=== PATIENT | female | born 1965 | race Caucasian/White ===

== ENCOUNTER 2020-09-03 08:54 | Outpatient (REF) | payer OTHER, SELFPAY ==
[2020-09-03 09:18] LABS: COVID-19 Test Negative (Negative)
== END 2020-09-03 08:55 | disposition home or self-care (01) ==
LOC: HO.LAB 08:54
PROVIDERS: PCP Family Medicine; Visit Provider Internal Medicine
DX: Z20.828 Contact with and (suspected) exposure to other viral communicable diseases (principal)
CPT/HCPCS: 87635

== ENCOUNTER 2020-10-31 10:03 | Outpatient (REF) | payer OTHER, SELFPAY ==
[2020-10-31 10:31] LABS: COVID-19 Test Negative (Negative)
== END 2020-10-31 10:04 | disposition home or self-care (01) ==
LOC: HO.EMPCOV 10:03
PROVIDERS: PCP Family Medicine; Visit Provider Internal Medicine
DX: Z20.828 Contact with and (suspected) exposure to other viral communicable diseases (principal)
CPT/HCPCS: 87635; C9803

== ENCOUNTER → 2021-01-08 14:42 | Outpatient (BNVA) | payer OTHER, SELFPAY | PROVIDERS: Visit Provider Internal Medicine | DX: I31.3 Pericardial effusion (noninflammatory) (principal) | CPT/HCPCS: 93005 ==

== ENCOUNTER → 2021-02-14 07:38 | Outpatient (REF) | payer OTHER, SELFPAY ==
--- NOTE | 2021-02-14 07:40 | CA_ITS ---
Transthoracic Echocardiogram Amended Patient (Last, First, Middle): Sissy Rubalcava Moyer Gender: Female Date of : 1965 Age: 55 Procedure Date: 02/14/2021 Procedure Type: Transthoracic Echocardiogram Location: OP Height: 160.02 cm Weight: 56.7 kg BSA: 1.58 m2 Heart Rate: bpm BP: 120 / 50 mmHg Toll Ticket Clerk: MAXIMILIANO Referring MD: John Bach MD Symptoms: I31.3 - Pericardial effusion (noninflammatory) Study Quality: Good ECG Rhythm: Sinus Conclusions: - The left ventricular systolic function is normal. The visually estimated ejection fraction is between 60-65%. - Moderate to large pericardial effusion most prominent over the right ventricle and partly right atrium, towards the posterior aspect. Maximum thickness almost 3.2 cm. Effusion is much smaller elsewhere. - There are no definitive echocardiographic findings of tamponade physiology. Findings Left Ventricle Normal left ventricular cavity size. There is normal left ventricular wall thickness. The left ventricular systolic function is normal. The visually estimated ejection fraction is between 60-65%. There is no evidence of regional wall motion abnormalities. Diastolic function is normal for age. Right Ventricle Normal right ventricular cavity size and systolic function. Atria Both atria are normal in size. Aortic Valve There is a normal trileaflet aortic valve. There is no aortic valve stenosis. There is no aortic valve regurgitation. Mitral Valve The mitral valve appears normal. There is trace mitral valve regurgitation. There is no mitral valve stenosis. Pulmonic Valve The pulmonic valve was not well visualized. Tricuspid Valve Normal tricuspid valve structure. There is trace tricuspid valve regurgitation. The pulmonary artery systolic pressure is normal. Great Vessels The aortic annulus, sinuses of valsalva, and asc aorta are normal in size. Venous The inferior vena cava is normal in size and collapses greater than 50% with inspiration. Pericardium/Pleural There are no definitive echocardiographic findings of tamponade physiology. Moderate to large pericardial effusion most prominent over the right ventricle and partly right atrium, towards the posterior aspect. Maximum thickness almost 3.2 cm. Effusion is much smaller elsewhere. Prior Study Comparison No significant change compared to prior study dated: 01/05/2019. Measurements 2D Linear Measurements IVSd: 0.74 0.6-0.9/0.6-1.0 cm LVIDd: 4.19 3.9-5.3/4.2-5.9 cm LVIDd Index: 2.65 2.4-3.2/2.2-3.1 cm/m2 LVIDs: 2.73 2.0-3.6 cm LVPWd: 0.79 0.7-1.1 cm Ao Root: 3.30 2.1-3.5 cm LA Diam: 3.00 2.7-3.8/3.0-4.0 cm LAIDs Index: 1.90 1.5-2.3 cm/m2 LV Mass: 118.75 67-162/88-224 g LV Mass Index: 75.16 43-95/49-115 g/m2 LVOT Diam: 2.10 3.0+(-)1.3 cm 2D Volumes LA Vol: 33.50 2D Systolic Function EF 4C: 59.10 >55% EF 2C: 64.50 >55% EF BiP: 63.00 >55% Mitral Valve MV Pk E: 1.06 MV PK A: 0.86 MV Decel Time: 236.00 E/A: 1.20 E'Lateral: 12.20 E'Medial: 10.80 E/E' Med: 9.80 E/E' Lat: 8.70 PHT: 69.00 MVA PHT: 3.19 Decel Lee: 4.50 Aortic Valve AoV Pk Aron: 1.08 AoV Mn Aron: 0.76 AoV VTI: 0.25 AoV Pk Grad: 5.00 Aov Mn Grad: 3.00 NANCY Cont.VTI: 3.10 LVOT LVOT Pk Aron: 0.97 LVOT Mn Aron: 0.63 LVOT VTI: 0.23 LVOT Pk Grad: 4.00 LVOT Mn Grad: 2.00 LVOT Diam: 2.10 LVOT Area: 3.46 Diastolic Function MV Pk E: 1.06 MV Pk A: 0.86 E/A: 1.20 E'Medial: 10.80 E/E' Med: 9.80 E' Laterial: 12.20 E/E' Lat: 8.70 Tricuspid Valve TR Pk Aron: 2.13 TR Pk Grad: 18.00 RA Press: 3.00 RVSP: 21.00 Great Vessels Aorta Ao Root-2D: 3.30 2.0-3.7 cm Ao Asc: 2.70 2.1-3.4 cm Updated in Other Vendor System with Status of Final John Bach MD electronically signed on 02/14/2021 6:25:08 PM with status of Final
== END ==
LOC: HO.CARD 07:38
PROVIDERS: PCP Family Medicine; Visit Provider Internal Medicine
DX: I31.3 Pericardial effusion (noninflammatory) (principal)
CPT/HCPCS: 93306

== ENCOUNTER → 2021-02-26 08:49 | Outpatient (BNVA) | payer OTHER, SELFPAY | PROVIDERS: PCP Family Medicine; Visit Provider Internal Medicine ==

== ENCOUNTER 2021-03-26 08:08 | Outpatient (REF) | payer OTHER, SELFPAY ==
[2021-03-26 09:27] LABS: Glucose Urine UA NEG (NEG); Leukocyte Esterase Urine 1+ (NEG); Nitrite Urine NEG (NEG); PH 6.5 (5.0-8.0); Urine Blood TRACE (NEG); Urine Ketones NEG (NEG); Urine Protein NEG (NEG-TRACE)
[2021-03-26 09:28] LABS: Appearance Urine HAZY; Color Urine YELLOW
[2021-03-26 09:29] LABS: MANUAL DIFF FLAG NO
[2021-03-26 09:43] LABS: Bacteria Urine TRACE /LPF; Mucus Urine 1+ /LPF; RBC Urine 0-2 /HPF (0); Squamous Epithelial Cell Urine 1+ /LPF
[2021-03-26 09:55] LABS: Basophils Percent Auto 0.4 % (0-2); Eosinophils Absolute Auto 0.1 X10*3/uL (0.0-0.4); Eosinophils Percent Auto 0.7 % (0-4); Hematocrit 34.4 % (37-47); Hemoglobin 11.6 g/dl (12.0-16.0); Imm Gran Abs Auto 0.01 X10*3/uL (0.00-0.03); Imm Gran Pct Auto 0.1 % (0.0-0.4); Lymphocytes Absolute Auto 2.2 X10*3/uL (1.2-4.9); Lymphocytes Percent Auto 32.7 % (20-40); Mean Corpuscular HGB Conc 33.7 g/dl (31.0-35.0); Mean Corpuscular Hemoglobin 29.7 pg (27.0-33.0); Mean Platelet Volume 11.2 fL (9.4-12.3); Monocytes Absolute Auto 0.4 X10*3/uL (0.1-1.2); Monocytes Percent Auto 5.6 % (2-11); Neutrophils Absolute Auto 4.1 X10*3/uL (2.0-8.3); Neutrophils Percent Auto 60.5 % (45-73); Platelet Count 286 X10*3/uL (160-400); Red Blood Count 3.91 X10*6/uL (4.20-5.50); Red Cell Distribution Width 12.2 % (11.0-16.0); White Blood Count 6.8 X10*3/uL (4.8-10.8)
[2021-03-26 10:27] LABS: Alanine Aminotransferase 18 U/L (0-31); Albumin Level 4.4 g/dL (3.5-5.0); Alkaline Phosphatase 59 U/L (39-117); Anion Gap 12 (12-20); Aspartate Amino Transferase 17 U/L (5-31); Bilirubin Total 1.2 mg/dL (0.0-1.0); Blood Urea Nitrogen 24 mg/dL (9-16); C Reactive Protein 0.18 mg/dL (< or = 0.50); Calcium 9.4 mg/dL (8.4-10.2); Carbon Dioxide 27 mmol/L (22-29); Chloride 102 mmol/L (96-108); Estimated Glomerular Filt Rate > 60; Glucose Random 108 mg/dL (60-115); Potassium 4.3 mmol/L (3.3-5.1); Sodium 137 mmol/L (135-145); Total Protein 6.8 g/dL (6.5-8.0)
[2021-03-26 10:35] LABS: Thyroid Stimulating Hormone 0.84 uIU/mL (0.32-4.0)
[2021-03-26 10:49] LABS: Rheumatoid Factor < 15.0 IU/mL (<15.0)
[2021-03-26 11:23] LABS: Erythrocyte Sedimentation Rate 7 MM/HR (0-20)
[2021-03-27 10:42] LABS: Complement C3 98 mg/dL (83-193)
[2021-03-27 21:12] LABS: Thyroglobulin Antibodies 1 IU/mL (< or = 1); Thyroid Peroxidase Antibodies 1 IU/mL (<9)
[2021-03-27 22:27] LABS: Lyme Abs Screen <0.90 index
[2021-03-28 15:47] LABS: Anti DNA DS Antibody 1 IU/mL; Antibody to SS-A Antigen <1.0 NEG AI (<1.0 NEG); Antibody to SS-B Antigen <1.0 NEG AI (<1.0 NEG); SM/Ribonucleoprotein Ab <1.0 NEG AI (<1.0 NEG); Smith Protein <1.0 NEG AI (<1.0 NEG)
[2021-03-28 17:26] LABS: Cyclic Citrullinated Peptide <16 UNITS
== END 2021-03-26 08:09 | disposition home or self-care (01) ==
LOC: HO.LAB 08:08
PROVIDERS: PCP Family Medicine; Visit Provider Student in an Organized Health Care Education/Training Program
DX: R76.8 Other specified abnormal immunological findings in serum (principal); M25.561 Pain in right knee; I31.3 Pericardial effusion (noninflammatory); Z87.891 Personal history of nicotine dependence; Z88.4 Allergy status to anesthetic agent
CPT/HCPCS: 36415; 80053; 81001; 84443; 85025; 85652; 86140; 86160; 86200; 86225; 86235; 86376; 86431; 86617; 86618; 86800

== ENCOUNTER 2021-03-29 09:49 | Outpatient (REF) | payer OTHER, SELFPAY ==
--- NOTE | ~2021-03-29 | CT_ITS ---
EXAMINATION: CT CHEST WITHOUT CONTRAST CLINICAL INFORMATION: Pericardial effusion COMPARISON: None TECHNIQUE: Multidetector volumetric CT imaging of the chest was done. Axial MIP volume rendering provided. Sagittal and coronal reformatted images were obtained. This CT examination was performed using dose optimization techniques as appropriate, variously including the following: *Automated exposure control *Adjustment of mA and/or kV according to patient size (this includes techniques or standardized protocols for targeted exams where dose is matched to indication/reason for exam; i.e. extremities or head) *Use of iterative reconstruction technique DLP: 101 mGy-cm FINDINGS: DRY SANDER: Unremarkable LUNGS: The lungs are well expanded and clear of acute pneumonic process. There is a 3 mm linear nodule right upper lobe, axial image 157/7, and 3 mm nodule right lung apex, image 130/7. No additional nodules seen. MEDIASTINUM: The thyroid lobes are symmetrical and normal. The central trachea and the bronchi are widely patent. There is a small pericardial effusion. The heart size is normal. No abnormal size mediastinal lymph nodes or mass seen. PLEURA: There is no pleural effusion. No pleural mass or thickening. AXILLA: No lymphadenopathy. UPPER ABDOMEN: There is a small 7 mm hypodense lesion right hepatic lobe segment 7. No additional lesions seen. There is no intrahepatic ductal dilatation. Visualized spleen, pancreas and bilateral adrenal glands are unremarkable. OSSEOUS STRUCTURES: Unremarkable. CT/CT chest wo con IMPRESSION: Small simple pericardial effusion. 3 mm linear and 3 mm round nodule right upper lobe.
--- NOTE | ~2021-03-29 | XR_ITS ---
EXAMINATION: XR KNEE, RIGHT CLINICAL INFORMATION: Pain. COMPARISON: None TECHNIQUE: AP, lateral, tunnel, and sunrise views of the right knee. FINDINGS: Bones and soft tissues are normal. No fracture or joint effusion. Alignment is anatomic. Joint spaces are well maintained. There is a small peripheral osteophyte at the lateral articular surface of the patella. No abnormal soft tissue calcification. XR/XR knee RT 4V IMPRESSION: 1. No right knee fracture, dislocation or joint effusion is seen. 2. There is very mild osteoarthritic change of the patellofemoral compartment.
== END 2021-03-29 09:50 | disposition home or self-care (01) ==
LOC: HO.CT 09:49
PROVIDERS: PCP Family Medicine; Visit Provider Physician Assistant
DX: I31.3 Pericardial effusion (noninflammatory) (principal); R06.02 Shortness of breath
CPT/HCPCS: 71250; 73564

== ENCOUNTER 2022-08-19 08:06 | Outpatient (REF) | payer OTHER, SELFPAY ==
[2022-08-19 11:39] LABS: Hematocrit 36.1 % (37.0-47.0); Hemoglobin 12.1 g/dl (12.0-16.0); Mean Corpuscular HGB Conc 33.5 g/dl (31.0-35.0); Mean Corpuscular Hemoglobin 30.1 pg (27.0-33.0); Mean Corpuscular Volume 89.8 fL (80.0-98.0); Mean Platelet Volume 11.2 fL (9.4-12.3); Platelet Count 300 X10*3/uL (160-400); Red Blood Count 4.02 X10*6/uL (4.20-5.50); Red Cell Distribution Width 12.3 % (11.0-16.0); White Blood Count 4.3 X10*3/uL (4.8-10.8)
[2022-08-19 12:16] LABS: Alanine Aminotransferase 9 U/L (0-31); Albumin Level 4.2 g/dL (3.5-5.0); Alkaline Phosphatase 54 U/L (39-117); Anion Gap 13 (12-20); Aspartate Amino Transferase 17 U/L (5-31); Bilirubin Total 1.6 mg/dL (0.0-1.0); Blood Urea Nitrogen 16 mg/dL (9-16); Calcium 8.9 mg/dL (8.4-10.2); Carbon Dioxide 25 mmol/L (22-29); Chloride 104 mmol/L (96-108); Cholesterol 185 mg/dL; Estimated Glomerular Filt Rate > 60; Glucose Fasting 93 mg/dL (60-99); HDL Cholesterol 70 mg/dL; LDL Cholesterol Calculated 100 mg/dl; Potassium 4.4 mmol/L (3.3-5.1); Sodium 138 mmol/L (135-145); Total Protein 6.4 g/dL (6.5-8.0); Triglycerides 76 mg/dL
[2022-08-19 12:20] LABS: TSH reflex Free T4 0.95 uIU/mL (0.32-4.0)
== END 2022-08-19 08:07 | disposition home or self-care (01) ==
LOC: HO.WFDLDS 08:06
PROVIDERS: Visit Provider Hospitalist
DX: Z00.00 Encounter for general adult medical examination without abnormal findings (principal)
CPT/HCPCS: 36415; 80053; 80061; 84443; 85027

== ENCOUNTER 2022-09-15 12:22 | Outpatient (REF) | payer OTHER, SELFPAY ==
--- NOTE | ~2022-09-15 | MM_ITS ---
EXAMINATION: MM SCREENING DIGITAL BREAST TOMOSYNTHESIS, BILATERAL CLINICAL INFORMATION: Screening. Asymptomatic. COMPARISON: Mammography: 07/06/2020, 03/16/2019, outside mammography 01/15/2018 ([place], [place]). TECHNIQUE: Digital breast tomosynthesis is performed in both the craniocaudal and mediolateral oblique views along with computer-aided detection (CAD). Synthesized 2D images are generated from the tomosynthesis. FINDINGS: There are scattered areas of fibroglandular density (ACR BI-RADS breast composition Category b). There are no significant masses, abnormal calcifications, or other abnormalities. Parenchymal pattern is similar to prior studies. There is no developing density or architectural abnormality. The axilla and skin contours are unremarkable. No significant changes. MM/MM tomosynthesis screening BI IMPRESSION: No mammographic evidence of malignancy. ASSESSMENT: BI-RADS 1: Negative RECOMMENDATION: Routine annual mammography screening. This patient's information was entered into a reminder system with a target due date for their next mammogram.
== END 2022-09-15 12:23 | disposition home or self-care (01) ==
LOC: HO.MAMMO 12:22
PROVIDERS: PCP Hospitalist; Visit Provider Hospitalist
DX: Z12.31 Encounter for screening mammogram for malignant neoplasm of breast (principal)
CPT/HCPCS: 77063; 77067

== ENCOUNTER → 2022-12-26 10:58 | Outpatient (BNVA) | payer OTHER, SELFPAY | PROVIDERS: PCP Hospitalist; Referring Provider Hospitalist; Visit Provider Internal Medicine Cardiovascular Disease | DX: I31.39 Other pericardial effusion (noninflammatory) (principal) | CPT/HCPCS: 93005 ==

== ENCOUNTER → 2022-12-26 12:52 | Outpatient (REF) | payer OTHER, SELFPAY ==
--- NOTE | 2022-12-26 13:06 | CA_ITS ---
Transthoracic Echocardiogram Patient (Last, First, Middle): Sissy Rubalcava Moyer Gender: Female Date of : 1965 Age: 57 Procedure Date: 12/26/2022 Procedure Type: Transthoracic Echocardiogram Location: OP Height: 160.02 cm Weight: 55.99 kg BSA: 1.58 m2 Heart Rate: bpm BP: 116 / 60 mmHg Day Light Relief Operator: Referring MD: Pietro Mcmahon MD Symptoms: I31.3 - Pericardial effusion (noninflammatory) Study Quality: Good ECG Rhythm: Sinus Conclusions: - The left ventricular systolic function is normal. The visually estimated ejection fraction is between 65-70%. - No obvious valvular pathology seen on this study. - Moderate to large, predominantly posterior pericardial effusion. - There are no definitive echocardiographic findings of tamponade physiology. Findings Left Ventricle Normal left ventricular cavity size. There is normal left ventricular wall thickness. The left ventricular systolic function is normal. The visually estimated ejection fraction is between 65-70%. There is no evidence of regional wall motion abnormalities. Diastolic function is normal for age. LV peak GLS -21.5%. Right Ventricle Normal right ventricular cavity size and systolic function. Atria Both atria are normal in size. Aortic Valve There is a normal trileaflet aortic valve. There is no aortic valve stenosis. There is no aortic valve regurgitation. Mitral Valve The mitral valve appears normal. There is no mitral valve regurgitation. There is no mitral valve stenosis. Pulmonic Valve The pulmonic valve is likely normal. Tricuspid Valve There is trace tricuspid valve regurgitation. There is no evidence of pulmonary hypertension. Great Vessels The asc aorta is normal in size. Venous The inferior vena cava is normal in size and collapses greater than 50% with inspiration. Pericardium/Pleural There are no definitive echocardiographic findings of tamponade physiology. Moderate to large, predominantly posterior pericardial effusion. In other areas, does not appear too prominent. Prior Study Comparison No significant change compared to prior study dated: 02/14/2021. Recommendations, Care & Conclusions No obvious valvular pathology seen on this study. Measurements 2D Linear Measurements IVSd: 0.76 0.6-0.9/0.6-1.0 cm LVIDd: 4.24 3.9-5.3/4.2-5.9 cm LVIDd Index: 2.68 2.4-3.2/2.2-3.1 cm/m2 LVIDs: 2.41 2.0-3.6 cm LVPWd: 0.75 0.7-1.1 cm Ao Root: 2.90 2.1-3.5 cm LA Diam: 2.90 2.7-3.8/3.0-4.0 cm LAIDs Index: 1.84 1.5-2.3 cm/m2 LV Mass: 118.44 67-162/88-224 g LV Mass Index: 74.96 43-95/49-115 g/m2 LVOT Diam: 2.10 3.0+(-)1.3 cm 2D Systolic Function EF 4C: 73.10 >55% EF 2C: 73.10 >55% EF BiP: 73.40 >55% Mitral Valve MV Pk E: 0.98 MV PK A: 0.66 MV Decel Time: 199.00 E/A: 1.50 E'Lateral: 10.40 E'Medial: 7.72 E/E' Med: 12.70 E/E' Lat: 9.40 PHT: 58.00 MVA PHT: 3.79 Decel [place]: 4.91 Aortic Valve AoV Pk Aron: 1.15 AoV Mn Aron: 0.73 AoV VTI: 0.28 AoV Pk Grad: 5.00 Aov Mn Grad: 3.00 NANCY Cont.VTI: 2.92 LVOT LVOT Pk Aron: 0.95 LVOT Mn Aron: 0.64 LVOT VTI: 0.24 LVOT Pk Grad: 4.00 LVOT Mn Grad: 2.00 LVOT Diam: 2.10 LVOT Area: 3.46 Diastolic Function MV Pk E: 0.98 MV Pk A: 0.66 E/A: 1.50 E'Medial: 7.72 E/E' Med: 12.70 E' Laterial: 10.40 E/E' Lat: 9.40 Right Ventricle TAPSE (mm): 22.00 Tricuspid Valve TR Pk Aron: 1.98 TR Pk Grad: 16.00 RA Press: 3.00 RVSP: 19.00 Great Vessels Aorta Ao Root-2D: 2.90 2.0-3.7 cm Ao Asc: 2.60 2.1-3.4 cm Pulmonary Valve PV Pk Aron: 0.97 Peak PV Grad: 4.00 Updated in Other Vendor System with Status of Final John Bach MD electronically signed on 12/28/2022 11:29:29 AM with status of Final
== END ==
LOC: HO.CARD 12:52
PROVIDERS: PCP Family Medicine; Visit Provider Internal Medicine Cardiovascular Disease
DX: I31.39 Other pericardial effusion (noninflammatory) (principal)
CPT/HCPCS: 93306; 93356

== ENCOUNTER → 2023-01-09 09:15 | Outpatient (BNVA) | payer OTHER, SELFPAY | PROVIDERS: PCP Family Medicine; Visit Provider Surgery | DX: I31.39 Other pericardial effusion (noninflammatory) (principal); R76.8 Other specified abnormal immunological findings in serum | CPT/HCPCS: 99202 ==

== ENCOUNTER 2023-01-26 07:19 | Outpatient (REF) | payer OTHER, SELFPAY ==
--- NOTE | ~2023-01-26 | CT_ITS ---
EXAMINATION: CT CHEST WITHOUT CONTRAST CLINICAL INFORMATION: Pericardial effusion. COMPARISON: None available. TECHNIQUE: Multidetector volumetric CT imaging of the chest was done. Axial MIP volume rendering provided. Sagittal and coronal reformatted images were obtained. This CT examination was performed using dose optimization techniques as appropriate, variously including the following: *Automated exposure control *Adjustment of mA and/or kV according to patient size (this includes techniques or standardized protocols for targeted exams where dose is matched to indication/reason for exam; i.e. 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 LUNGS: The lungs are expanded without acute pneumonic process. There are small pulmonary nodules. A 3 mm nodule right upper lobe axial image 126/8, stable, 3 mm linear nodule right upper lobe axial image 156/8, stable. No additional nodules seen. MEDIASTINUM: The thyroid lobes are symmetric and normal. The central trachea and the bronchi are widely patent. Heart size and the great vessels are normal caliber. Small pericardial effusion seen. No abnormal size mediastinal lymph nodes. CORONARY ARTERY CALCIFICATION: Mild coronary artery calcifications are present. PLEURA: There is no pleural effusion. No pleural mass or thickening. AXILLA: No lymphadenopathy. UPPER ABDOMEN: Small hypodense right lobe liver lesion seen. The spleen is unremarkable. Pancreas and bilateral adrenal glands unremarkable. OSSEOUS STRUCTURES: No aggressive lytic or sclerotic process seen. CT/CT chest wo IV con IMPRESSION: Stable pulmonary nodules. Small pericardial effusion is stable. Fleischner guidelines were followed.
== END 2023-01-26 07:20 | disposition home or self-care (01) ==
LOC: HO.CT 07:19
PROVIDERS: Visit Provider Surgery
DX: I31.39 Other pericardial effusion (noninflammatory) (principal)
CPT/HCPCS: 71250

== ENCOUNTER → 2023-04-07 08:13 | Outpatient (BNVA) | payer OTHER, SELFPAY | PROVIDERS: PCP Family Medicine; Visit Provider Internal Medicine Cardiovascular Disease ==

== ENCOUNTER → 2023-04-28 12:59 | Outpatient (REF) | payer OTHER, SELFPAY ==
--- NOTE | 2023-04-28 13:02 | CA_ITS ---
Transthoracic Echocardiogram Patient (Last, First, Middle): Sissy Rubalcava Moyer Gender: Female Date of : 1965 Age: 57 Procedure Date: 04/28/2023 Procedure Type: Transthoracic Echocardiogram Location: OP Height: 160.02 cm Weight: 56.7 kg BSA: 1.58 m2 Heart Rate: bpm BP: 96 / [address] Sign Installer: COOPER Referring MD: Pietro Mcmahon MD Symptoms: I31.3 - Pericardial effusion (noninflammatory) Study Quality: Adequate ECG Rhythm: Sinus Conclusions: - There is no evidence of pericardial effusion. Findings Venous The inferior vena cava is normal in size and collapses greater than 50% with inspiration. Pericardium/Pleural There is no evidence of pericardial effusion. Prior Study Comparison Changes noted compared to prior study dated: 12/26/2022. Resolved pericardial effusion. Measurements Tricuspid Valve RA Press: 3.00 Updated in Other Vendor System with Status of Final John Bach MD electronically signed on 04/29/2023 10:26:18 AM with status of Final
== END ==
LOC: HO.CARD 12:59
PROVIDERS: PCP Family Medicine; Visit Provider Internal Medicine Cardiovascular Disease
DX: Z86.79 Personal history of other diseases of the circulatory system (principal)
CPT/HCPCS: 93308

== ENCOUNTER → 2023-04-30 15:25 | Outpatient (REF) | payer OTHER, SELFPAY ==
--- NOTE | 2023-04-30 15:29 | CA_ITS ---
Transthoracic Echocardiogram Patient (Last, First, Middle): Sissy Rubalcava Moyer Gender: Female Date of : 1965 Age: 57 Procedure Date: 04/30/2023 Procedure Type: Transthoracic Echocardiogram Location: OP Height: 160.02 cm Weight: 56.7 kg BSA: 1.58 m2 Heart Rate: 51 bpm BP: 102 / 66 mmHg Geothermal Production Manager: YARELIS Referring MD: Pietro Mcmahon MD Acute Care Certified Nursing Assistant: Pietro Mcmahon MD Symptoms: I31.3 - Pericardial effusion (noninflammatory)/Limited for additional images Study Quality: Adequate ECG Rhythm: Bradycardia Conclusions: - No constrictive physiology noted Findings Left Ventricle Normal left ventricular size, thickness, and systolic function. The visually estimated ejection fraction is between 60-65%. Pericardium/Pleural There is no evidence of pericardial effusion. There are no definitive echocardiographic findings of constrictive physiology. The inferior vena cava is normal in size with preserved respiratory variability. Measurements 2D Linear Measurements IVSd: 0.73 0.6-0.9/0.6-1.0 cm LVIDd: 4.17 3.9-5.3/4.2-5.9 cm LVIDd Index: 2.64 2.4-3.2/2.2-3.1 cm/m2 LVIDs: 2.70 2.0-3.6 cm LVPWd: 0.73 0.7-1.1 cm LV Mass: 110.08 67-162/88-224 g LV Mass Index: 69.67 43-95/49-115 g/m2 Mitral Valve E'Lateral: 10.50 E'Medial: 8.44 Diastolic Function E'Medial: 8.44 E' Laterial: 10.50 Tricuspid Valve RA Press: 3.00 Pulmonary Veins Pulm Vein S/D 0.70 Updated in Other Vendor System with Status of Final Pietro Mcmahon MD electronically signed on 04/30/2023 5:31:08 PM with status of Final
== END ==
LOC: HO.CARD 15:25
PROVIDERS: Visit Provider Internal Medicine Cardiovascular Disease
DX: I31.39 Other pericardial effusion (noninflammatory) (principal)
CPT/HCPCS: 93308

== ENCOUNTER 2023-05-12 10:49 | Outpatient (AMB) | payer OTHER, SELFPAY ==
--- NOTE | 2023-05-12 10:52 | MHC.OFFVIS ---
Intake Vital Signs 05/12/23 10:53 Height 5 ft 3 in Weight 124 lb 12.506 oz BMI 22.1 BP 104/76 Blood Pressure Location Rt brachial Position Sitting Pulse 62 Pulse Source Pulse Oximeter Temp 97.3 F Temp Source Skin Pulse Oximetry (%) 93 Intake Visit Reasons: +ALLEN Intake Note: Pt seen for evaluation of positive ALLEN.? Last seen in March 2021.?Presents today in the office for follow-up visit. 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 Hx of pericadrial effusion, S/P pericardial drainage and a window placement by Dr Zamora Facility Sales And Admin Required: No Accompanied by: Self / Same As Patient Allergies midazolam Adverse Reaction (Severe, Verified 05/12/23 10:56) full body spasm, period of unresponsiveness HPI HPI Comments History of Present Illness Details The patient presents for evaluation of history of positive ALLEN and a chronic pericardial effusion. She has had the ALLEN for number of years but no clear signs of active inflammatory disease outside the presence of a pericardial effusion. In March of this year she underwent placement of a pericardial window. Pathology at the time did not reveal malignancy or significant inflammatory findings on the biopsy. She did not have any symptoms afterwards and remains without significant exertional dyspnea or chest pain. She gets intermittent discomfort in the right hip. This is most felt posteriorly. She notes that in certain positions. It does seem to bother her when she is standing or walking. Occasionally there is some knee pain over the proximal patella tendon. There is no swelling or redness there. There is no history of injury to these areas. She does not take any medication for those pains. 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 She does do some walking and yoga for exercises. She does notice the right hip discomfort in certain poses for yoga. [facility] Medical History ALLEN positive (~2019) Osteopenia (~2019) Pericardial effusion (~2015) Surgical History (Updated 05/12/23 @ 11:05 by MUSA Whitley) History of bunionectomy of right great toe (~1990) History of hernia repair (~1975) History of loop electrical excision procedure (LEEP) (~2006) History of surgery Family History Father HTN (hypertension) Brother No problems noted. Son No problems noted. Son No problems noted. Daughter No problems noted. Daughter No problems noted. 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 She does not use eyedrops. Negative for vision change, headaches and dizziness ENT Details: Negative for hearing change, tinnitus, oral ulcer, nose bleeds and oral dryness. Card Details: Negative chest pain, edema and syncope Resp Details: Negative for SOB, cough and wheezing GI Details: Negative indigestion/heartburn, nausea, abdominal pain, bowel changes, diarrhea, constipation and bloody stool. Skin/Breast Details: Negative for itching, rash, hives, Raynaud's symptoms, sun sensitivity, and skin cancer Endo Details: Negative for polyuria and polydypsia Paco/Lymph Details: Negative for excessive bruising or bleeding. Physical Exam Vital Signs: Last Vital Signs Temp 97.3 F 05/12/23 10:53 Pulse 62 05/12/23 10:53 BP 104/76 05/12/23 10:53 Pulse Ox 93 05/12/23 10:53 BMI result Body Mass Index 22.1 APPEARANCE: Patient in no acute distress EYES no redness, pupils equal and reactive to light, eyelids normal EARS: External ear normal, canal clear and tympanic membrane normal. NOSE/SINUS: Airflow through both nares, no nasal discharge, no bleeding THROAT: Oral mucosa moist, no ulcerations NECK: No thyromegaly or masses, no adenopathy, trachea midline. HEART: Regulrar rhythm, S1-S2 heard, no murmurs, rubs or gallops. LUNG: Clear to percussion and auscultation ABD: Normal bowel sounds, no organomegaly, masses or tenderness. EXTREMITIES: No edema, no calf tenderness, normal peripheral pulses. NEURO: Oriented and alert x3. No focal weakness. Reflexes symmetric. Gait normal. SKIN: No inflammatory or neoplastic lesions. Normal color and turgor JOINT EXAM:.?? Cervical Spine:.? Full range of motion without pain; no tenderness. Thoracic Spine:.? No scoliosis.? No tenderness on palpation. Lumbar Spine:.? Alignment normal.? Full range of motion without pain, no tenderness. Chest Wall:.? No tenderness, swelling, increased warmth or erythema. Hands:.? Right: Normal pain-free range of motion. There is some slight thickening in the thumb IP in all the PIP joints. These are not tender. There is no flexor tendon triggering, thenar atrophy or sensory loss. Left Normal pain-free range of motion without tenderness, swelling, increased warmth or erythema. Able to make a full fist and has a good lamp shade sewer strength. Wrists:.? Normal pain-free range of motion without tenderness, swelling, increased warmth or erythema. Elbows:. Normal pain-free range of motion without tenderness, swelling, increased warmth or erythema. Shoulders:.?? Full range of motion without pain. No tenderness, weakness, swelling, increased warmth or erythema. Hips:.? Right: Range of motion seems intact but there is some discomfort at the extremes of external rotation. This is felt mostly in the anterolateral area. There is no groin mass or tenderness. Left: Full range of motion without pain. Hip bursa:.? No tenderness. Knees:.?? Normal pain-free range of motion without tenderness, swelling, increased warmth or erythema.? There is no effusion or crepitation Ankles:.? Normal pain-free range of motion without tenderness, swelling, increased warmth or erythema. Feet:.? Normal pain-free range of motion without tenderness, swelling, increased warmth or erythema. Tender points:.? No tenderness to digital palpation at the occiput, trapezius, second rib, lateral epicondyle, knees, greater trochanter and gluteal area bilaterally. ? Results Reviewed Results Reviewed: Laboratory Tests 12/23/19 03/09/20 03/26/21 08:04 07:25 08:57 WBC Hgb Plt Count ESR 7 Urine Protein ALLEN Titer 1:320 H SS-A/Ro Antibody <1.0 SS-B/La Antibody <1.0 Sm (Rand) Antibody <1.0 SmRNP Antibodies <1.0 Scl-70 Scleroderma Ab <1.0 03/26/21 08/19/22 Unknown 08:10 WBC 4.3 L Hgb 12.1 Plt Count 300 ESR Urine Protein NEG ALLEN Titer SS-A/Ro Antibody SS-B/La Antibody Sm (Rand) Antibody SmRNP Antibodies Scl-70 Scleroderma Ab Assessment & Plan Assessment & Plan (1) ALLEN positive: Onset Date: ~2019 Code(s): R76.8 - Other specified abnormal immunological findings in serum Plan The patient had a pericardial effusion for a number of years and now it has been treated with a pericardial window. There are no symptoms currently. We still do not have a specific diagnosis on this pericardial effusion. The ALLEN is positive at a low titer without other antibodies being positive and no other signs or symptoms to suggest an active inflammatory disease. There is some minimal changes of osteoarthritis in the right hand and some slight pain with range of motion the right hip suggesting early OA in that region as well. She says it was x-rayed about 15 years ago and she was told she had mild OA present. It is possible this could progress but there would be any specific treatment to prevent that for now. I will check urine for microalbumin, CBC, chemistries inflammatory markers. Unless though show significant abnormalities I do not think we need to schedule her back. We could always re-evaluate her if there was suspicion in the future of an autoimmune or inflammatory disease. Orders: Orders Comprehensive Met. Panel 05/12/23 R76.8 - Other specified abnormal immunological findings in serum C Reactive Protein 05/12/23 R76.8 - Other specified abnormal immunological findings in serum Protein Creatinine Ratio, Ur 05/12/23 R76.8 - Other specified abnormal immunological findings in serum Complete Blood Count Auto Diff 05/12/23 R76.8 - Other specified abnormal immunological findings in serum Erythrocyte Sedimentation Rate 05/12/23 R76.8 - Other specified abnormal immunological findings in serum Coding Level of Care Code Est Pt Level 3 (22023) Diagnoses ALLEN positive R76.8
[2023-05-12 10:53] VITALS: BP 104/76; PULSE 62; TEMP 36.3; O2SAT 93; BMI 22.1
== END 2023-05-12 11:25 | disposition home or self-care (01) ==
LOC: HO.RHE 10:49
PROVIDERS: PCP Family Medicine; Visit Provider Internal Medicine Rheumatology
DX: R76.8 Other specified abnormal immunological findings in serum (principal)
CPT/HCPCS: 99213

== ENCOUNTER 2023-05-12 10:49 | Outpatient (REF) | payer OTHER, SELFPAY ==
[2023-05-12 11:44] LABS: MANUAL DIFF FLAG NO
[2023-05-12 12:31] LABS: Basophils Absolute Auto 0.1 X10*3/uL (0.0-0.2); Basophils Percent Auto 0.8 % (0-2); Eosinophils Absolute Auto 0.1 X10*3/uL (0.0-0.4); Eosinophils Percent Auto 1.3 % (0-4); Hematocrit 35.4 % (37.0-47.0); Hemoglobin 12.1 g/dl (12.0-16.0); Imm Gran Abs Auto 0.02 X10*3/uL (0.00-0.03); Imm Gran Pct Auto 0.3 % (0.0-0.4); Lymphocytes Absolute Auto 1.9 X10*3/uL (1.2-4.9); Lymphocytes Percent Auto 30.8 % (20-40); Mean Corpuscular HGB Conc 34.2 g/dl (31.0-35.0); Mean Corpuscular Volume 87.6 fL (80.0-98.0); Monocytes Absolute Auto 0.4 X10*3/uL (0.1-1.2); Monocytes Percent Auto 6.5 % (2-11); Neutrophils Absolute Auto 3.8 x10*3/uL (2.0-8.3); Neutrophils Percent Auto 60.3 % (45-73); Platelet Count 314 X10*3/uL (160-400); Red Blood Count 4.04 X10*6/uL (4.20-5.50); Red Cell Distribution Width 12.2 % (11.0-16.0); White Blood Count 6.3 X10*3/uL (4.8-10.8)
[2023-05-12 13:04] LABS: Alanine Aminotransferase 9 U/L (0-31); Albumin Level 4.2 g/dL (3.5-5.0); Alkaline Phosphatase 61 U/L (39-117); Anion Gap 13 (12-20); Aspartate Amino Transferase 17 U/L (5-31); Bilirubin Total 1.3 mg/dL (0.0-1.0); Blood Urea Nitrogen 20 mg/dL (9-16); C Reactive Protein < 0.04 mg/dL (< or = 0.50); Calcium 9.6 mg/dL (8.4-10.2); Carbon Dioxide 25 mmol/L (22-29); Chloride 103 mmol/L (96-108); Estimated Glomerular Filt Rate > 60; Glucose Random 95 mg/dL (60-115); Sodium 137 mmol/L (135-145); Total Protein 6.5 g/dL (6.5-8.0)
[2023-05-12 13:21] LABS: Erythrocyte Sedimentation Rate 5 MM/HR (0-20)
[2023-05-12 14:03] LABS: Protein/Creatinine Ratio, Ur 0.05 (<0.2); Total Protein Urine Random 8 mg/dL (<12)
== END 2023-05-12 10:50 | disposition home or self-care (01) ==
LOC: CF 10:49
PROVIDERS: PCP Family Medicine; Visit Provider Internal Medicine Rheumatology
DX: R76.8 Other specified abnormal immunological findings in serum (principal); M25.569 Pain in unspecified knee
CPT/HCPCS: 36415; 80053; 84156; 85025; 85652; 86140

== ENCOUNTER 2023-12-01 15:52 | Outpatient (AMB) | payer OTHER, SELFPAY ==
[2023-12-01 16:03] VITALS: BP 102/62; PULSE 79; O2SAT 99; BMI 22.5
--- NOTE | 2023-12-01 16:03 | MHC.PC.OV ---
Vital Signs 12/01/23 16:03 Height 5 ft 3 in Weight 127 lb 4 oz BMI 22.5 BP 102/62 Blood Pressure Location Lt brachial Position Sitting Pulse 79 Pulse Source Pulse Oximeter Pulse Oximetry (%) 99 Oxygen Delivery Method Room Air Intake Visit Reasons: PHY Intake Note: Patient is here for her physical today. She is concerned about arthritis in right hip, would like referral to PT. Allergies midazolam Adverse Reaction (Severe, Verified 12/01/23 16:07) full body spasm, period of unresponsiveness Tobacco use date assessed: 12/01/23 Dental Screening Dental Screen Date: 12/01/23 Did you have a dental visit in the last 12 months?: Yes Did you have a dental problem in the last 6 months where you did not have access to dental care?: No Was dental information given to patient?: Patient has dentist HPI PHY HPI Details 58 y/o female presents for a CPE with f/u labs and health maintenance. No recent labs to review. Pt reports R hip pain. She describes pain as tightness across her hips. 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 She notes some sun damage and spots on her skin. [facility] Medical History Osteopenia (~2019) ALLEN positive (~2019) Pericardial effusion (~2015) Surgical History History of surgery History of loop electrical excision procedure (LEEP) (~2006) History of bunionectomy of right great toe (~1990) History of hernia repair (~1975) Family History Father HTN (hypertension) Brother No problems noted. Son No problems noted. Son No problems noted. Daughter No problems noted. Daughter No problems noted. 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 1. Little interest or pleasure in doing things: not at all 2. Feeling down, depressed, or hopeless: not at all 3. Trouble falling or staying asleep, or sleeping too much: not at all 4. Feeling tired or having little energy: not at all 5. Poor appetite or overeating: not at all 6. Feeling bad about yourself - or that you are a failure or have let yourself or your family down: not at all 7. Trouble concentrating on things, such as reading the newspaper or watching television: not at all 8. Moving or speaking so slowly that other people could have noticed. Or the opposite - being so fidgety or restless that you have been moving around a lot more than usual: not at all 9. Thoughts that you would be better off or of hurting yourself in some way: not at all Total score: 0 Source: Developed by Drs. Sy Mejias, Esther Melgoza, Jem Wayne and colleagues, with an educational robert from [employer]. Thrive Questionnaire Date Thrive assessed: 12/01/23 I am a: Patient What is your living situation today?: I have a steady place to live Within the past 12 months, did the food you bought not last and you didn't have the money to get more?: Never true Within the past 12 months, did you worry whether your food would run out before you got money to buy more?: Never true Do you have trouble paying for medicines?: No Do you have trouble getting transportation to medical appointments?: No Do you have trouble paying your heating and electricity bill?: No Do you have trouble taking care of your child, family member or friend?: No Do you have trouble with day-to-day activities such as bathing, preparing meals, shopping, managing finances, etc.?: No Are you currently unemployed and looking for a job?: No Are you interested in more education?: No THRIVE Score: 0 AUDIT C Alcohol Use Questionnaire (AUDIT-C) 1. How often do you have a drink containing alcohol?: Monthly or less 2. How many drinks containing alcohol do you have on a typical day when you are drinking?: 1 or 2 3. How often do you have six or more drinks on one occasion?: Never Total Score: 1 BRISSA-7 AMB Questionnaire BRISSA-7 Date BRISSA - 7 assessed: 12/01/23 Feeling nervous, anxious, or on edge: 1 = Several days Not being able to stop or control worryin = Not at all Worrying too much about different things: 0 = Not at all Trouble relaxin = Not at all Being so restless that it is hard to sit still: 1 = Several days Becoming easily annoyed or irritable: 0 = Not at all Feeling afraid as if something awful might happen: 0 = Not at all Total BRISSA-7 score (0-4 normal; 5-9 mild; 10-14 moderate; 15-21 severe): 2 Source: Developed by Drs. Sy Mejias, Esther Melgoza, Jem Wayne and colleagues, with an educational robert from [employer]. Review of Systems Const Denies chills, Denies fatigue, Denies fever(s), Denies headache(s) and Denies weakness Eyes Denies change in vision ENT Denies dizziness, Denies headache(s), Denies hearing loss, Denies nasal congestion, Denies sinus pain, Denies sinus pressure and Denies sore throat Card Denies chest pain, Denies lightheadedness, Denies dyspnea and Denies other (palpitations) Resp Denies cough, Denies dyspnea and Denies wheezing GI Denies abdominal pain, Denies melena, Denies hematochezia, Denies change in bowel habits, Denies dyspepsia and Denies nausea Denies hematuria and Denies dysuria Musc Denies abnormal gait, Denies myalgias, Denies arthralgias, Denies numbness and Denies tingling Skin/Breast Denies rash, Denies unusual bruising and Denies wounds Neuro Denies abnormal gait, Denies dizziness, Denies headache(s), Denies memory loss, Denies numbness, Denies Sensory deficit (Neuro), Denies tingling and Denies weakness Psych Denies anxiety, Denies depression and Denies memory loss Endo Denies cold intolerance, Denies fatigue, Denies heat intolerance, Denies polydipsia and Denies polyuria Paco/Lymph Denies easy bleeding and Denies easy bruising Aller/Immun Denies wheezing Physical exam (Primary Care) BMI result Body Mass Index 22.5 Tobacco/Smoking Status: Tobacco use Status Tobacco use date assessed 12/01/23 12/01/23 16:09 Patient Tobacco Use Status Former Tobacco user 12/01/23 16:09 e-Cigarette/Vaping Use Never Used 12/01/23 16:09 PHQ-9: PHQ-9 Score PHQ-9: Total score 0 12/01/23 16:14 Thrive Assessment: Date of Thrive Assessment Date Thrive assessed 12/01/23 12/01/23 16:14 Const General: no acute distress, well developed, alert and awake Nutritional Appearance: well nourished Orientation/consciousness: patient oriented x3 HENMT Head: Yes normocephalic and Yes atraumatic Ears: hearing grossly normal bilaterally and TM's normal bilaterally General nose exam: Normal external nose present and Normal nares present Mouth: Normal oral and palatal mucosa present and moist mucous membranes Teeth and gingiva: dentition normal Throat: Yes posterior oropharynx normal Eyes General: appearance normal, both eyes and all related structures Pupils: Equal, round and reactive pupils present and Pupil accommodation reflex normal EOM: EOMs intact bilaterally Neck Neck: Yes normal visual inspection, Yes no lymphadenopathy and Yes trachea midline Thyroid: Thyroid normal Carotids: no bruits Lymphatic: no lymphadenopathy noted Chest Chest palpation & inspection: normal inspection of the chest Resp Effort & Inspection: normal respiratory effort Auscultation: clear to auscultation bilaterally Cardio Rate: regular rate Rhythm: regular rhythm Heart sounds: S1 normal heart sound present, S2 normal heart sound present, no gallops, no murmurs and no rubs Bruits: no abdominal aortic bruits and no carotid bruits GI Palpation (GI): No Abdominal aortic bruit present, Soft to palpation, nontender, No hepatosplenomegaly present and No Rebound tenderness present Auscultation: normal bowel sounds General: Yes no CVA tenderness Back/Spine/Pelvis Back: no CVA tenderness Cervical Spine: cervical ROM normal and No Cervical spine tenderness Thoracic/Lumbar Spine: thoraco-lumbar ROM normal, No pain with thoraco-lumbar ROM, No thoracic spinal tenderness and No lumbar spinal tenderness Skin Lesions: no lesions Rashes: no rashes Trauma: no lacerations or abrasions Wounds: no wounds Nails: normal Neuro General: patient oriented x3 Cranial nerves: Yes Equal, round and reactive pupils present Cognition (Neuro): normal cognition Gait exam (Neuro): Normal gait present Motor exam (neuro): 5/5 motor strength present throughout Sensory Exam: No Sensory deficit (Neuro) Deep tendon reflexes (DTR's): Right patellar reflex intensity grade: 2+ and Left patellar reflex intensity grade: 2+ Extrem General: Yes normal to inspection and No edema Psych Appearance: grossly normal Affect: normal affect Attitude: cooperative Thought process: Normal thought process present Assessment and Plan Assessment & Plan (1) ALLEN positive: Onset Date: ~2019 Code(s): R76.8 - Other specified abnormal immunological findings in serum Plan: History?of?elevated?ALLEN?and?also?pericardial?effusions?though?she?is?now?status?post?pericardial?window. No?other?abnormal?autoimmune?markers?however. Rechecking?inflammatory?and?ALLEN?markers (2) Osteopenia: Onset Date: ~2019 Comment: (Bone Dexa Femoral T-score: -1.6 on 06/29/2020) Code(s): M85.80 - Other specified disorders of bone density and structure, unspecified site Plan: Due?for?bone?density?testing-ordered (3) Right hip pain: Code(s): M25.551 - Pain in right hip Plan: Right?lateral?hip?pain Check?x-ray Start?physical?therapy NSAIDs?as?needed (4) Sun-damaged skin: Code(s): L57.8 - Other skin changes due to chronic exposure to nonionizing radiation (5) Screening for cervical cancer: Code(s): Z12.4 - Encounter for screening for malignant neoplasm of cervix Plan: Patient?is?overdue?for?Pap?smear Referred?to?metal mover (6) Screening for colon cancer: Code(s): Z12.11 - Encounter for screening for malignant neoplasm of colon Plan: Patient?says?she?had?a?colonoscopy?in?2018?and?was?told?to?follow-up?in?2027 Up-to-date (7) Breast cancer screening by mammogram: Code(s): Z12.31 - Encounter for screening mammogram for malignant neoplasm of breast Plan: Due?for?mammogram Ordered Orders: Orders Comprehensive Virgie. Panel Fast Today Z00.00 - Encounter for general adult medical examination without abnormal findings Lipid Panel Today Z00.00 - Encounter for general adult medical examination without abnormal findings Erythrocyte Sedimentation Rate Today R76.8 - Other specified abnormal immunological findings in serum ALLEN Reflex Titer and Pattern Today R76.8 - Other specified abnormal immunological findings in serum XR DEXA axial skeleton Today M81.0 - Age-related osteoporosis without current pathological fracture, M85.80 - Other specified disorders of bone density and structure, unspecified site Complete Blood Count Auto Diff Today Z00.00 - Encounter for general adult medical examination without abnormal findings Microalbumin, Random (w Creat) Today I10 - Essential (primary) hypertension UA and rflx microscopic Today Z00.00 - Encounter for general adult medical examination without abnormal findings TSH reflex Free T4 Today Z00.00 - Encounter for general adult medical examination without abnormal findings CRP High Sensitivity Today R76.8 - Other specified abnormal immunological findings in serum XR hip RT min 2V Today M25.551 - Pain in right hip PT Evaluation and Treatment Today M25.551 - Pain in right hip MM tomosynthesis screening BI Today Z12.31 - Encounter for screening mammogram for malignant neoplasm of breast Referrals Dermatology Referral L57.8 - Other skin changes due to chronic exposure to nonionizing radiation 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
== END 2023-12-01 16:38 | disposition home or self-care (01) ==
PROVIDERS: PCP Family Medicine; Visit Provider Family Medicine
DX: R76.8 Other specified abnormal immunological findings in serum (principal); M85.80 Other specified disorders of bone density and structure, unspecified site; M25.551 Pain in right hip; L57.8 Other skin changes due to chronic exposure to nonionizing radiation; Z12.4 Encounter for screening for malignant neoplasm of cervix; Z12.11 Encounter for screening for malignant neoplasm of colon; Z12.31 Encounter for screening mammogram for malignant neoplasm of breast
CPT/HCPCS: 99214

== ENCOUNTER 2023-12-11 07:12 | Outpatient (REF) | payer OTHER, SELFPAY ==
--- NOTE | ~2023-12-11 | XR_ITS ---
EXAMINATION: XR HIP, RIGHT CLINICAL INFORMATION: Pain. COMPARISON: None available. TECHNIQUE: Two views of the right hip. FINDINGS: No fracture or subluxation. Mild joint space narrowing and subcortical sclerosis in the right hip. No significant soft tissue abnormality. XR/XR hip RT min 2V IMPRESSION: No acute fracture or malalignment. Mild degenerative osteoarthritis of the right hip.
[2023-12-11 07:27] LABS: MANUAL DIFF FLAG NO
[2023-12-11 07:54] LABS: Basophils Percent Auto 0.8 % (0-2); Eosinophils Absolute Auto 0.1 X10*3/uL (0.0-0.4); Eosinophils Percent Auto 1.6 % (0-4); Hematocrit 38.1 % (37.0-47.0); Hemoglobin 12.9 g/dl (12.0-16.0); Imm Gran Abs Auto 0.01 X10*3/uL (0.00-0.03); Imm Gran Pct Auto 0.2 % (0.0-0.4); Lymphocytes Absolute Auto 1.7 X10*3/uL (1.2-4.9); Lymphocytes Percent Auto 33.9 % (20-40); Mean Corpuscular HGB Conc 33.9 g/dl (31.0-35.0); Mean Corpuscular Hemoglobin 29.6 pg (27.0-33.0); Mean Corpuscular Volume 87.4 fL (80.0-98.0); Mean Platelet Volume 10.4 fL (9.4-12.3); Monocytes Absolute Auto 0.3 X10*3/uL (0.1-1.2); Monocytes Percent Auto 6.5 % (2-11); Neutrophils Absolute Auto 2.8 x10*3/uL (2.0-8.3); Platelet Count 350 X10*3/uL (160-400); Red Blood Count 4.36 X10*6/uL (4.20-5.50); Red Cell Distribution Width 12.1 % (11.0-16.0); White Blood Count 4.9 X10*3/uL (4.8-10.8)
[2023-12-11 07:57] LABS: Appearance Urine Clear; Color Urine Yellow; Glucose Urine UA Negative (Negative); Leukocyte Esterase Urine Trace (Negative); Nitrite Urine Negative (Negative); PH 7.5 (5.0-9.0); Specific Gravity - Urine 1.015 (1.005-1.025); UMIC TRIGGER UA YES; Urine Blood Negative (Negative); Urine Ketones Negative (Negative); Urine Protein Negative (Neg-Trace)
[2023-12-11 08:24] LABS: Bacteria Urine None Seen (None Seen); Hyaline Casts Urine 0-2 /LPF (0-2); RBC Urine 0-2 /HPF (0-2); Squamous Epithelial Cell Urine 0-2 /HPF (0-2); WBC Urine 0-5 /HPF (0-5)
[2023-12-11 08:32] LABS: Erythrocyte Sedimentation Rate 5 MM/HR (0-20)
[2023-12-11 08:52] LABS: Alanine Aminotransferase 11 U/L (0-31); Albumin Level 4.1 g/dL (3.5-5.0); Alkaline Phosphatase 59 U/L (39-117); Anion Gap 12 (12-20); Aspartate Amino Transferase 18 U/L (5-31); Blood Urea Nitrogen 13 mg/dL (9-16); Calcium 8.9 mg/dL (8.4-10.2); Carbon Dioxide 27 mmol/L (22-29); Chloride 103 mmol/L (96-108); Cholesterol 191 mg/dL (<200); Creatinine Urine 90.07 mg/dL; Estimated Glomerular Filt Rate > 60; Glucose Fasting 90 mg/dL (60-99); HDL Cholesterol 68 mg/dL (>40); LDL Cholesterol Calculated 110 mg/dL (<100); Microalbumin Urine < 5.0 mg/L; Sodium 138 mmol/L (135-145); Total Protein 6.7 g/dL (6.5-8.0); Triglycerides 66 mg/dL (<150)
[2023-12-14 14:29] LABS: CRP High Sensitivity 0.4 mg/L
[2023-12-17 15:58] LABS: Anti Nuclear Antibody Pattern Nuclear, Homogeneous; Anti Nuclear Antibody Screen POSITIVE (NEGATIVE)
== END 2023-12-11 07:13 | disposition home or self-care (01) ==
LOC: HO.XRAY 07:12
PROVIDERS: PCP Family Medicine; Visit Provider Family Medicine
DX: M25.551 Pain in right hip (principal); R76.8 Other specified abnormal immunological findings in serum; I10 Essential (primary) hypertension; Z00.00 Encounter for general adult medical examination without abnormal findings
CPT/HCPCS: 36415; 73502; 80053; 80061; 81001; 82043; 82570; 84443; 85025; 85652; 86038; 86039; 86141

== ENCOUNTER 2024-01-14 13:39 | Outpatient (REF) | payer OTHER, SELFPAY ==
--- NOTE | ~2024-01-14 | MM_ITS ---
EXAMINATION: MM SCREENING DIGITAL BREAST TOMOSYNTHESIS, BILATERAL CLINICAL INFORMATION: Screening. Asymptomatic. COMPARISON: Mammography: 09/15/2022, 07/06/2020, 03/16/2019, outside mammography 01/15/2018 ([place], [place]). TECHNIQUE: Digital breast tomosynthesis is performed in both the craniocaudal and mediolateral oblique views along with computer-aided detection (CAD). Synthesized 2D images are generated from the tomosynthesis. FINDINGS: There are scattered areas of fibroglandular density (ACR BI-RADS breast composition Category b). There are no suspicious masses, suspicious grouped calcifications, or areas of architectural distortion in either breast. The parenchymal pattern is stable from prior exams. No skin or axillary abnormality. MM/MM tomosynthesis screening BI IMPRESSION: No mammographic evidence of malignancy. ASSESSMENT: BI-RADS BI-RADS 1 - Negative RECOMMENDATION: Routine annual mammography screening. 1 year F/U This examination should not preclude the clinical evaluation of a suspicious palpable abnormality. This patient's information was entered into a reminder system with a target due date for their next mammogram.
--- NOTE | ~2024-01-14 | MM_ITS ---
EXAMINATION: BONE DENSITOMETRY CLINICAL INDICATION: Age-related osteoporosis without current pathological fracture. COMPARISON: Baseline BD dated 06/29/2020. TECHNIQUE: Using a [employer] DXA System (software version: 13.1) manufactured by [employer], dual-energy x-ray absorptiometry was performed of the lumbar spine and left hip. The images are of good technical quality. Summary results are attached. FINDINGS: LEFT FEMUR, NECK: Current: BMD 0.815 g/cm2, Z-score -0.3, T-score -1.6, osteopenia. Baseline: BMD 0.818 g/cm2. LEFT FEMUR, TOTAL: Current: BMD 0.859 g/cm2, Z-score -0.2, T-score -1.2, osteopenia, 2.4% increase from baseline (<5% change is not significant). Baseline: BMD 0.839 g/cm2. AP SPINE L1-L4: Current: BMD 0.953 g/cm2, Z-score -0.6, T-score -1.9, osteopenia, 5.5% decrease from baseline (<5% change is not significant). Baseline: BMD 1.008 g/cm2. IDENTIFIED RISK FACTORS: Menopause. HISTORY OF FRACTURE: None listed. MEDICATIONS: Calcium. MM/XR DEXA axial skeleton IMPRESSION: 1. DIAGNOSIS: Osteopenia based on the lowest T-score value of -1.9 in the lumbar spine applying World Health Organization criteria. 2. 10-YEAR FRACTURE RISK PREDICTION, FRAX: Major osteoporotic fracture (clinical spine, forearm, hip or shoulder) 7.2%. Hip fracture 0.7%. 3. Treatment Recommendations: NOF guidelines recommend consideration for treatment in postmenopausal women and men age 50 and older presenting with the following: -A hip or vertebral (clinical or morphometric) fracture. -T-score less than or equal to -2.5 at the femoral neck or spine after appropriate evaluation to exclude secondary causes. -Low bone mass at the hip or spine and a 10-year fracture probability by FRAX of greater than or equal to 3% for hip fracture or greater than or equal to 20% for major osteoporotic fracture based on the [place] adapted WHO algorithm. 4. Other Recommendations: All treatment decisions require clinical judgment and consideration of individual patient factors, including patient preferences, comorbidities, previous drug use, risk factors not captured in the FRAX model (e.g. frailty, falls, vitamin D deficiency, increased bone turnover, interval significant decline in bone density) and possible under or overestimation of fracture risk by FRAX. Additional medical evaluation for secondary cause of low bone mineral density may be appropriate. FUTURE SCAN RECOMMENDATION: People with diagnosed cases of osteoporosis or at high risk for fracture should have regular bone mineral density tests. For patients eligible for Medicare, routine testing is allowed once every 2 years. The testing frequency can be increased to one year for patients who have rapidly progressing disease, those who are receiving or discontinuing medical therapy to restore bone mass, or have additional risk factors.
== END 2024-01-14 13:40 | disposition home or self-care (01) ==
LOC: HO.MAMMO 13:39
PROVIDERS: PCP Family Medicine; Visit Provider Family Medicine
DX: Z12.31 Encounter for screening mammogram for malignant neoplasm of breast (principal); Z13.820 Encounter for screening for osteoporosis; M85.80 Other specified disorders of bone density and structure, unspecified site; M81.0 Age-related osteoporosis without current pathological fracture; Z78.0 Asymptomatic menopausal state
CPT/HCPCS: 77063; 77067; 77080

== ENCOUNTER → 2024-01-14 14:00 | Outpatient (BNV) | payer OTHER, SELFPAY | PROVIDERS: PCP Family Medicine; Visit Provider Radiology Diagnostic Radiology | DX: Z12.31 Encounter for screening mammogram for malignant neoplasm of breast (principal) | CPT/HCPCS: 77063; 77067 ==

== ENCOUNTER 2024-04-20 10:00 | Outpatient (RCR) | payer OTHER, SELFPAY ==
--- NOTE | 2024-03-30 13:37 | MHC.PT.EP ---
[facility] [place] Office [place] Office [place] Office [address] [phone] F: [phone] F: [phone] F: [phone] F: [phone] Physical Therapy Plan of Care Date of Evaluation: 03/30/24 Date of Surgery: NA Diagnosis: R HIP PAIN Assessment: Pt IS 58 YO F REFERRED TO PT FROM DR BOUCHER WITH R HIP PAIN. Pt REPORTS 2 YR HX OF R LB/GLUT PAIN WHICH STARTED WITHOUT INCIDENT BUT HAS BECOME PROGRESSIVELY MORE ANNOYING AND Pt WAS RECOMMENDED TO COME TO PT BY HER DTR. 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 PRESENTS WITH OVERALL GOOD STRENGTH, AND SOME TIGHTNESS IN QUAD/HIP FLEXOR MMS. Pt REPORTS DIFFICULTY GOING ON LONG CARE RIDES AND AN OVERALL FEELING OF TIGHTNESS . Frequency and Duration: The patient will be seen 1X/WK X 6 WKS Short Term Goals: 1. INCREASED AWARENESS BACK AND LE CARE 2. 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 I HEP WITH DC EX PLAN 2. Pt TO REPORT IMPROVED JANINE TO CAR RIDE (AT LEAST 60 MIN) Treatment Plan: Modalities to reduce pain, spasms and effusion. Manual therapy to restore motion and function. Therapeutic exercise to improve strength and flexibility. Neuromuscular re-education for posture and balance. Therapeutic activities to return to functional activities of daily living. Electronically signed by: AUDRA CORDERO PT Please sign and return to therapist. Thank you for your referral.
--- NOTE | 2024-05-30 16:03 | MHC.PT.DC ---
[facility] [place] Office [place] Office [place] Office [address]orio Brito [address] [phone] F: [phone] F: [phone] F: [phone] F: [phone] Physical Therapy Discharge Report Diagnosis: R HIP PAIN Date of Surgery: NA Date of Evaluation: 03/30/24 Date of Discharge: 05/30/24 Treatments to Date: 3 Cancellations to Date: No Shows to Date: Discharge Status: Achieved Goals Improved Function Independent with HEP Patient Elected to Stop Discharge Summary: FEELING BETTER OVERALL, HAS MET MOST GOALS. WOULD LIKE TO DC Electronically signed by: AUDRA CORDERO PT Please sign and return to therapist. Thank you for your referral.
== END 2024-05-30 16:04 | disposition home or self-care (01) ==
LOC: HO.PTWFD 10:00
PROVIDERS: PCP Family Medicine; Visit Provider Family Medicine
DX: M25.551 Pain in right hip (principal)
CPT/HCPCS: 97110; 97161; 97535

== ENCOUNTER 2024-06-01 14:30 | Outpatient (REF) | payer OTHER, SELFPAY ==
[2024-06-05 13:34] LABS: HPV mRNA E6/E7 Not Detected (Not Detected)
== END 2024-06-01 14:31 | disposition home or self-care (01) ==
LOC: HO.LNP 14:30
PROVIDERS: PCP Family Medicine; Visit Provider Advanced Practice Midwife
DX: Z01.419 Encounter for gynecological examination (general) (routine) without abnormal findings (principal)
CPT/HCPCS: 87624; 88175

== ENCOUNTER 2024-06-01 14:30 | Outpatient (AMB) | payer OTHER, SELFPAY ==
--- NOTE | 2024-06-01 15:10 | A.OFFVIS_ITS ---
Vital Signs 06/01/24 15:12 Height 5 ft 3 in Weight 124 lb BMI 22.0 BP 94/60 Intake Visit Reasons: New patient Annual Intake Note: pt c/o painful intercourse Bench Hand Machine: Bench Hand Machine Present (Stephanie) Allergies midazolam Adverse Reaction (Severe, Verified 06/01/24 15:11) full body spasm, period of unresponsiveness HPI Comments Details: She is a postmenopausal woman presenting for her new patient annual ob/gyn doctor examination. She is doing well with no concerns. Attempting to eat a healthy diet with calcium and vitamin D and stays active with exercise-yoga, light weights. Currently not sexually active due to pain x2 years. Menopausal times 10 years. STI testing offered; she declines. Last pap smear; 2018. Last mammogram; 2023. Colonoscopy is UTD, 2017. Denies any family history of breast, ovarian or colon cancer. [facility] Medical History Osteopenia (~2019) ALLEN positive (~2019) Pericardial effusion (~2015) Surgical History History of surgery History of loop electrical excision procedure (LEEP) (~2006) History of bunionectomy of right great toe (~1990) History of hernia repair (~1975) Family History Father HTN (hypertension) Brother No problems noted. Son No problems noted. Son No problems noted. Daughter No problems noted. Daughter No problems noted. 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 Hearing needs: No Vision needs: No Female Reproductive History Menstrual Menopause type: natural Total pregnancies: 5 Full term: 4 Number of Living Children: 4 Date of last pap smear: 03/02/19 (neg pap and hpv) History of abnormal pap smear: Yes (hx leep 2006) Date of Mammogram: 01/14/24 (Birad 1) Date of last Bone Density Screenin01/14/24 Review of Systems Const All systems reviewed & are unremarkable except as noted in HPI and below Reports as per HPI Eyes Reports no additional complaints ENT Reports no additional complaints Card Reports no additional complaints Resp Reports no additional complaints GI Reports as per HPI and Reports no additional complaints Reports as per HPI Musc Reports no additional complaints Skin/Breast Reports as per HPI Neuro Reports no additional complaints Psych Reports no additional complaints Endo Reports no additional complaints Paco/Lymph Reports no additional complaints Aller/Immun Reports no additional complaints Physical Exam Vital Signs: Last Vital Signs BP 94/60 06/01/24 15:12 BMI result Body Mass Index 22.0 Const General: cooperative, healthy appearing, no acute distress, well developed and alert Orientation/consciousness: patient oriented x3 HEENT Head: Yes normal to inspection Eyes General: appearance normal, both eyes and all related structures Neck Neck: Yes normal visual inspection Thyroid: Thyroid normal Chest Chest palpation & inspection: normal inspection of the chest and other (no puckering, dimpling, peau de orange, retraction, discharge, masses) Breast/axilla inspection: normal inspection of the breasts Breast/axilla palpation: normal palpation of the breasts Resp Effort & Inspection: normal respiratory effort GI Inspection: Yes normal to inspection Palpation (GI): Soft to palpation Rectal Exam - Female: deferred Other: external atrial changes General: Yes bladder normal to palpation External Female Exam: normal external appearance and normal appearance of the urethra Speculum Exam - Vagina: normal appearance of the vagina, normal palpation, normal vaginal discharge and vagina atrophic Speculum Exam - Cervix: normal appearance of the cervix and normal palpation Bimanual exam- vagina & uterus: normal bimanual exam, normal palpation, uterine size normal, bladder normal to palpation, normal palpation and non-tender Bimanual Exam- Adnexa, other: no masses Skin General skin exam: no rashes or lesions noted Rashes: no rashes Neuro General: patient oriented x3 Cognition (Neuro): normal cognition Extrem General: Yes normal to inspection Psych Attitude: cooperative Thought process: Normal thought process present Assessment & Plan Assessment & Plan (1) Encounter for well woman exam with routine gynecological exam: Code(s): Z01.419 - Encounter for gynecological examination (general) (routine) without abnormal findings Category: Medical (2) Vaginal atrophy: Code(s): N95.2 - Postmenopausal atrophic vaginitis Plan Discussed: Current recommendations for pap smears per ASCCP guidelines. Breast awareness, periodic self breast exams and yearly mammogram. Maintain a healthy lifestyle, well balanced diet including Calcium 1,200 mg and Vitamin D 600 IU daily, and routine exercise. Vaginal atrophy and dyspareunia, self-help measures with Replens moisturizer, external botonical creams-option for vaginal estrogen versus systemic use. Risks/benefits, pros and cons, directions for use, and dose frequency. She would like to start vaginal estrogen, Rx sent to pharmacy, follow up plan of care in 2-3 months for recheck. Hormone use in relationship/concerns with breast cancer. Contact the office with any postmenopausal bleeding. Patient verbalizes understanding and agrees to the plan of care. She was given opportunity to ask questions and all questions were answered to the best of my ability. RTO in 1 year for annual ob/gyn doctor exam. This note is constructed using voice recognition software. While every effort has been made to ensure accuracy, system administration manager errors may have been included. Orders: Orders PAP + HPV E6/E7 rfx 18/45 Today Z01.419 - Encounter for gynecological examination (general) (routine) without abnormal findings Medications: New estradiol 0.01%(0.1mg/gram) (Estrace) use nightly for two weeks, then twice a week 1 g vaginal 2XW 42.5 grams 1RF Coding Level of Care Code New Pt Prev Care 40-64y(26041) Diagnoses Encounter for well woman exam with routine gynecological exam Z01.419 Vaginal atrophy N95.2
[2024-06-01 15:12] VITALS: BP 94/60; BMI 22.0
== END 2024-06-01 16:05 | disposition home or self-care (01) ==
PROVIDERS: PCP Family Medicine; Visit Provider Advanced Practice Midwife
DX: Z01.419 Encounter for gynecological examination (general) (routine) without abnormal findings (principal); N95.2 Postmenopausal atrophic vaginitis
CPT/HCPCS: 99386

== ENCOUNTER 2024-06-29 13:20 | Outpatient (AMB) | payer OTHER, SELFPAY ==
--- NOTE | 2024-06-29 13:24 | A.OFFVIS_ITS ---
Intake Visit Reasons: Polypectomy Allergies midazolam Adverse Reaction (Severe, Verified 06/01/24 15:11) full body spasm, period of unresponsiveness [facility] Medical History Osteopenia (~2019) ALLEN positive (~2019) Pericardial effusion (~2015) Surgical History History of surgery History of loop electrical excision procedure (LEEP) (~2006) History of bunionectomy of right great toe (~1990) History of hernia repair (~1975) Family History Father HTN (hypertension) Brother No problems noted. Son No problems noted. Son No problems noted. Daughter No problems noted. Daughter No problems noted. 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
--- NOTE | 2024-06-29 13:26 | A.OFFVIS_ITS ---
Vital Signs 06/29/24 13:27 BP 100/60 Intake Visit Reasons: Polypectomy Supervisor Phosphoric Acid: Supervisor Phosphoric Acid Present (Stephanie) Allergies midazolam Adverse Reaction (Severe, Verified 06/29/24 13:27) full body spasm, period of unresponsiveness HPI Comments Details: Patient is here today for cervical polypectomy. She denies any postmenopausal bleeding. Tried Estrace and reports a migraine, discontinued is interested in attempting use again, reports sensitivities for migraine triggers including many environmental triggers. [facility] Medical History Osteopenia (~2019) ALLEN positive (~2019) Pericardial effusion (~2015) Surgical History History of surgery History of loop electrical excision procedure (LEEP) (~2006) History of bunionectomy of right great toe (~1990) History of hernia repair (~1975) Family History Father HTN (hypertension) Brother No problems noted. Son No problems noted. Son No problems noted. Daughter No problems noted. Daughter No problems noted. 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 Hearing needs: No Vision needs: No Review of Systems Const All systems reviewed & are unremarkable except as noted in HPI and below Physical Exam Vital Signs: Last Vital Signs BP 100/60 06/29/24 13:27 Const General: cooperative, healthy appearing and no acute distress Orientation/consciousness: patient oriented x3 GI Rectal Exam - Female: visual inspection normal External Female Exam: normal appearance of the urethra Speculum Exam - Vagina: normal appearance of the vagina and normal vaginal discharge Speculum Exam - Cervix: normal appearance of the cervix (Status post LEEP appearance, small cervical polyp) Neuro General: patient oriented x3 Office Procedures Cervical Polypectomy Details Details: Consent for Cervical Polypectomy procedure: The patient is here today for an Cervical Polypectomy. She was counseled regarding anticipatory guidance for the procedure including the risks for pain, infection, bleeding, perforation, potential injury to the tissues may include the cervix, vagina, uterus, tubes, bladder and bowels. These injuries may include further treatment and evaluation including surgery, blood transfusions, antibiotics, hospitalizations and anesthesia. Permanent injury and scarring can occur. She was consented for the procedure, and the consent forms were signed. She is agreeable to have the procedure today. All questions were answered. Polypectomy Procedure: The patient was placed in the dorsal lithotomy position and a sterile speculum inserted. Using aseptic technique for the procedure. The cervix was cleansed with Betadine. The polyp was grasped with a [place] and gently twisted until removed. The tissue sample was placed in formalin in a patient labeled container by staff assisting and sent to the pathology department for processing and interpretation. Very minimal bleeding was observed.The patient tolerate the procedure well and was in good condition when leaving the department. Post Polypectomy Care: There may be some bleeding for several days that is usually light and can turn to a light brown or pink in color. Mild cramping may occur. Nothing in the vagina including: tampons, douching or intimacy for a week. You may take an over the counter mild analgesia like Tylenol or Advil (if no allergies), per the manufacturers recommendations on dosing and frequency. Follow the directions completely. Call the office if any: fever (over 100.4), flu like symptoms, abdominal pain, worsening cramping not resolved with over the counter medications, foul smelling vaginal odor, signs of infected appearing discharge, or heavy bleeding. A follow up for results on the pathology will be made. Please call the office if you have any concerns. This note is constructed using voice recognition software. While every effort has been made to ensure accuracy, medical payment poster errors may have been included. CPT: 32803 - Cervical Polypectomy All charges added?: Procedure code (CPT) selection complete Assessment & Plan Assessment & Plan (1) Cervical polyp: Code(s): N84.1 - Polyp of cervix uteri Plan See procedure notes. Discussed the use of vaginal Estrace, she is committed to trial again, advised small dose twice a week spacing every 3-4 days. If headache reoccurs discontinue use, and then consider Replens moisturizer. Has follow up in August booked to evaluate estrogen therapy. All of her questions and concerns were addressed to the best of my ability and shared decision making. She is agreeable to the plan of care. This note is constructed using voice recognition software. While every effort has been made to ensure accuracy, medical payment poster errors may have been included. Orders: Orders Surgical Today N84.1 - Polyp of cervix uteri Coding Level of Care Code Procedure Only Diagnoses Cervical polyp N84.1 CPT Codes Details - CPT: 04011 - Cervical Polypectomy ([id number])
[2024-06-29 13:27] VITALS: BP 100/60
== END 2024-06-29 15:12 | disposition home or self-care (01) ==
PROVIDERS: PCP Family Medicine; Visit Provider Advanced Practice Midwife
DX: N84.1 Polyp of cervix uteri (principal)
CPT/HCPCS: 57500

== ENCOUNTER 2024-06-29 13:20 | Outpatient (REF) | payer OTHER, SELFPAY | END 2024-06-29 13:21 | disposition home or self-care (01) | LOC: HO.LAB 13:20 | PROVIDERS: PCP Family Medicine; Visit Provider Advanced Practice Midwife | DX: N84.1 Polyp of cervix uteri (principal) | CPT/HCPCS: 57500; 88305 ==